=== PATIENT | male | born 1995 ===

== ENCOUNTER 2017-05-02 09:23 | Emergency (ER) | payer MEDICAID ==
[2017-05-02 09:29] VITALS: BP 125/69; PULSE 90; RESP 18; TEMP 97.9; O2SAT 99
--- NOTE | 2017-05-02 10:52 | RAD ---
PROCEDURE: Left Ankle Radiographs. HISTORY: pain ans swelling COMPARISON: None FINDINGS: BONES: Normal. No fracture. JOINTS: Normal. No osteoarthritis. Ankle mortise maintained. Talar dome intact SOFT TISSUES: Normal. OTHER FINDINGS: None. IMPRESSION: Normal left ankle radiographs.
--- NOTE | 2017-05-02 11:01 | C.PDOC ---
History Of Present Illness A 21 y/o male comes in c/o pain and swelling to the left ankle last night. Patient states that he missed steps on the stairs and has pain to the lateral malleolus. The pain is dull, throbbing pain that is 5/10 in discomfort. Patient is walking with a limp and denies fever, chills, weakness, numbness, LOC, dizziness, nausea, vomiting, or any other complaints. Time Seen by Provider: 05/02/17 09:32 Chief Complaint (Nursing): Lower Extremity Problem/Injury History Per: Patient History/Exam Limitations: no limitations Onset/Duration Of Symptoms: Days Current Symptoms Are (Timing): Still Present Severity: Mild Recent travel outside of the [place]: No Additional History Per: Patient - Ankle/Foot Description Of Injury: Other (Missed steps on the stairs) Past Medical History Reviewed: Historical Data, Nursing Documentation, Vital Signs Vital Signs: Last Vital Signs Temp 97.9 F 05/02/17 09:27 Pulse 90 05/02/17 09:27 Resp 18 05/02/17 11:24 BP 125/69 05/02/17 09:27 Pulse Ox 99 05/02/17 11:06 Family History: States: Unknown Family Hx - Social History Hx Alcohol Use: No Hx Substance Use: No - Immunization History Hx Tetanus Toxoid Vaccination: No Hx Influenza Vaccination: No Hx Pneumococcal Vaccination: No Review Of Systems Except As Marked, All Systems Reviewed And Found Negative. Constitutional: Negative for: Fever, Chills Gastrointestinal: Negative for: Nausea, Vomiting Musculoskeletal: Positive for: Foot Pain (Left ankle swelling and pain) Neurological: Negative for: Weakness, Numbness, Dizziness, Other (LOC) Physical Exam - Physical Exam Appears: Non-toxic, No Acute Distress Skin: Warm, Dry Head: Atraumatic, Normacephalic Extremity: Normal ROM, Tenderness (Bony tenderness to the lateral malleolus), Capillary Refill (<2secs), No Deformity, Swelling (Lateral malleolus ) Extremity: Bilateral: Normal Color And Temperature Pulses: Left Dorsalis Pedis: Normal, Right Dorsalis Pedis: Normal Neurological/Psych: Oriented x3, Normal Motor, Normal Sensation, Other (No focal deficit) Gait: Other (Walking with a limp) ED Course And Treatment O2 Sat by Pulse Oximetry: 99 (RA) Pulse Ox Interpretation: Normal Medical Decision Making Medical Decision Making: Impression: A 21 y/o male comes in c/o pain and swelling to the left ankle last night. Plans: -XRAY left ankle -Tylenol -Motrin -PT -Reassess XRAY shows no fractures. Pt was discharge with an vladimir wrap and crutches and was instructed to R.I.C.E. his left ankle. IF symptoms were to persist pt was instructed to follow up with PMD. Disposition Counseled Patient/Family Regarding: Studies Performed, Diagnosis, Need For Followup, Rx Given - Disposition Referrals: [facility] [Outside] Disposition: HOME/ ROUTINE Disposition Time: 10:58 Condition: STABLE Prescriptions: Ibuprofen [Motrin] 600 mg PO TID #15 tab Instructions: [facility] (ED) Forms: General Discharge Instructions - Clinical Impression Clinical Impression: Left ankle sprain - Scribe Statement The provider has reviewed the documentation as recorded by the Scribe Dolores sanchez All medical record entries made by the Scribe were at my direction and personally dictated by me. I have reviewed the chart and agree that the record accurately reflects my personal performance of the history, physical exam, medical decision making, and the department course for this patient. I have also personally directed, reviewed, and agree with the discharge instructions and disposition.
== END 2017-05-02 11:36 | disposition home or self-care (01) ==
LOC: C.ER 09:23
DX: S93.402A Sprain of unspecified ligament of left ankle, initial encounter (principal); X58.XXXA Exposure to other specified factors, initial encounter; Y92.89 Other specified places as the place of occurrence of the external cause
CPT/HCPCS: 73610; 97116; 97161; 99285; G8978; G8979; G8980

== ENCOUNTER 2018-11-06 20:21 | Emergency (ER) | payer MEDICAID ==
[2018-11-06 20:46] VITALS: BP 136/66; PULSE 67; TEMP 98.9; O2SAT 99
--- NOTE | 2018-11-06 22:45 | C.PDOC ---
History Of Present Illness 23 year old male presents to the ER with a complaint of right ankle pain and swelling after he twisted his right ankle while playing basketball earlier today. Patient states he must have twisted it after stepping on another players foot. Denies weakness or numbness. Time Seen by Provider: 11/06/18 21:21 Chief Complaint (Nursing): Lower Extremity Problem/Injury History Per: Patient History/Exam Limitations: no limitations Onset/Duration Of Symptoms: Hrs Current Symptoms Are (Timing): Still Present Recent travel outside of the [place] States: No - Ankle/Foot Description Of Injury: Twisted Past Medical History Reviewed: Historical Data, Nursing Documentation, Vital Signs Vital Signs: Last Vital Signs Temp 98.9 F 11/06/18 20:43 Pulse 67 11/06/18 20:43 Resp 17 11/06/18 20:43 BP 136/66 11/06/18 20:43 Pulse Ox 99 11/06/18 20:43 Family History: States: Unknown Family Hx - Social History Hx Alcohol Use: Yes Hx Substance Use: Yes - Immunization History Hx Tetanus Toxoid Vaccination: No Hx Influenza Vaccination: No Hx Pneumococcal Vaccination: No Review Of Systems Musculoskeletal: Positive for: Other (right ankle pain and swelling) Neurological: Negative for: Weakness, Numbness Physical Exam - Physical Exam Appears: Non-toxic Skin: Normal Color, Warm, Dry Head: Atraumatic, Normacephalic Extremity: Normal ROM (x4), Capillary Refill (<2 seconds), No Deformity, Other (Tenderness and swelling to right lateral malleolus) Pulses: Left Dorsalis Pedis: Normal, Right Dorsalis Pedis: Normal Neurological/Psych: Oriented x3, Normal Speech, Normal Motor, Normal Sensation ED Course And Treatment O2 Sat by Pulse Oximetry: 99 (Room air) Pulse Ox Interpretation: Normal - Other Rad Right ankle x-ray X-Ray: Interpreted by Me, Viewed By Me Interpretation: No acute fractures or dislocations. Progress Note: Right ankle x-ray ordered, results were negative. Patient placed in vladimir wrap and air cast for support, given crutches with instructions, and discharged home with instructions to follow up with PMD Disposition Counseled Patient/Family Regarding: Diagnosis, Need For Followup, Rx Given - Disposition Referrals: Phong Veloz MD [Staff Provider] - Disposition: HOME/ ROUTINE Disposition Time: 22:41 Condition: STABLE Additional Instructions: Please follow up with orthopedist or citrus peeler Take motrin for pain Return to ER if worse Prescriptions: Ibuprofen [Motrin] 600 mg PO Q6H #30 tab Instructions: Ankle Sprain (DC) Forms: [employer] (Portuguese) - Clinical Impression Clinical Impression: Right ankle sprain - 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 - Scribe Statement The provider has reviewed the documentation as recorded by the Scribe Dharmesh Kaminski All medical record entries made by the Danyelibtanesha were at my direction and personally dictated by me. I have reviewed the chart and agree that the record accurately reflects my personal performance of the history, physical exam, medical decision making, and the department course for this patient. I have also personally directed, reviewed, and agree with the discharge instructions and disposition.
[2018-11-07 02:44] VITALS: RESP 20
--- NOTE | 2018-11-07 08:52 | RAD ---
Date of service: 11/06/2018 PROCEDURE: Right Ankle Radiographs. HISTORY: pain, swelling, ,twisting injury COMPARISON: None FINDINGS: BONES: Normal. No fracture. JOINTS: Normal. No osteoarthritis. Ankle mortise maintained. Talar dome intact SOFT TISSUES: Normal. OTHER FINDINGS: None. IMPRESSION: Normal right ankle radiographs.
== END 2018-11-06 23:15 | disposition home or self-care (01) ==
LOC: C.ER 20:21
DX: S93.401A Sprain of unspecified ligament of right ankle, initial encounter (principal); X50.9XXA Other and unspecified overexertion or strenuous movements or postures, initial encounter; Y93.67 Activity, basketball